=== PATIENT | female | born 1960 | race Caucasian/White ===

== ENCOUNTER 2016-10-07 15:41 | Observation (INO) | payer OTHER ==
[~2016-10-07] VITALS: Ht 158.8 cm; Wt 61.3 kg
--- NOTE | ~2016-10-07 | ECHO ---
Transthoracic Echocardiography Report (TTE) Demographics Patient Name STACY GALLARDO Date of Study 10/08/2016 Patient Number [id number] Visit Number [id number] Date of 1960 Room Number G6322 Gender Female Number Age 56 year(s) Referring Safia Aguilera Occupational Health And Safety Adviser Karina Adams, Physician RT,RVT,RDCS Physician Interpreting George Donnelly MD Recruitment Specialist Physician Supervising Ordering Safia Aguilera MD/MLP Physician Nurse Stress Picking Crew Supervisor Conclusions Contractility Score Summary Normal Left Ventricular contractility was noted. Summary Normal LV/RV size and systolic function. The estimated left ventricular ejection fraction is 65-70%. Trivial pericardial effusion. No significant valvular abnormalities. Procedure Type of Study TTE procedure:2D Echocardiogram, M-Mode, Doppler , Color Doppler. Procedure Date Date: 10/08/2016 Start: 09:50 AM Study Location: Inpatient Portable Technical Quality: Adequate visualization Indications:Syncope. Appropriate Use Criteria: 9 Patient Status: Routine HR: 66 bpm BP: 116/60 mmHg M-Mode/2D Measurements LV Diastolic Dimension: 3.87 cm LV Systolic Dimension: 2.08 cm LV Septum Diastolic: 0.79 cm LV PW Diastolic: 0.9 cm AO Root Dimension: 3.3 cm Cardiac Output: 2.43 l/min AV Cusp Separation: 1.6 cm RV Diastolic Dimension: 2.71 cm LA volume: 44 ml MV EPSS: 0.3 cm LVOT: 1.9 cm LVOT VTI: 13 cm LV Stroke volume: 36.84 ml Doppler Measurements AV Peak Velocity: 0.84 m/s MV Peak E-Wave: 0.82 m/s AV Peak Gradient: 2.84 mmHg MV Peak A-Wave: 0.64 m/s AV Mean Gradient: 1 mmHg MV E/A Ratio: 1.29 LVOT Peak Velocity: 0.67 m/s MV P1/2t: 55 msec TR Gradient:9.86 mmHg PV Peak Velocity: 0.88 m/s Estimated RAP:10 mmHg PV Peak Gradient: 3.08 mmHg Estimated RVSP: 20 mmHg Estimated PASP: 19.86 mmHg E' Septal Velocity: 0.05 m/s A' Septal Velocity: 0.12 m/s MV E/E' Ratio: 14.9 Findings Left Ventricle Normal left ventricle size and function. Diastolic assessment reveals normal relaxation. Right Ventricle Normal right ventricle structure and function. Left Atrium Normal left atrial size. Right Atrium Normal right atrial size. IVC imaging is consistent with normal RA pressures. Mitral Valve Normal mitral valve structure and function. Trace MR. Aortic Valve Normal aortic valve structure and function. Tricuspid Valve Normal tricuspid valve structure and function. Trace TR. Pulmonic Valve Normal pulmonic valve structure and function. Pericardial Effusion Trivial pericardial effusion. Miscellaneous Visualized portions of the aortic root and ascending aorta appear normal in size. Pleural Effusion No evidence of pleural effusion. Contractility Score LV regional wall motion:(0-Non visualized 1-Normal 2-Hypokinesis 3-Akinesis 4-Dyskinesis 5-Aneurysm) Signature dtt: DAGOBERTO REY dtd: 10/08/16 0950 Physician Self Edit
--- NOTE | ~2016-10-07 | ER ---
PATIENT'S NAME: [facility] AGE: 56 Y [address] ROOM: [place] [id number] LOCATION: GPCU ADMIT DATE: 10/07/2016 ER/Outpatient Report DISCHARGE DATE: FAMILY PHYSICIAN: PHYSICIAN, UNKNOWN ATTENDING PHYSICIAN: Willy BAIG Time of arrival: 1541. Time of evaluation: 1550. CHIEF COMPLAINT: Near syncope. HISTORY OF PRESENT ILLNESS: The patient is a 56-year-old female, who presents to the emergency department today with chief complaint of near-syncope. The patient has been feeling faint while driving. Apparently the patient was visiting some family earlier today. They were driving back home to [place] in the car when the patient had a total 4 episodes and the first one started where she felt like she was going to faint. She then, per her , reports that she started talking incoherently, she would still say 6 to 8 words but they made no sense at all. He reports they lasted a few seconds and then she had 3 more episodes en route to the hospital. There is no real slurring with the speech. He did not notice any weakness in any of her extremities when she was riding in a car. She did act very agitated with it. She does not have any history of similar episodes in the past. Denies any fevers or chills. No nausea or vomiting. No diarrhea or constipation. No chest pain. No shortness of breath. The patient has been undergoing quite a bit of stress in her job; otherwise, no other changes in her life. PAST MEDICAL HISTORY: Hypothyroid. PAST SURGICAL HISTORY: None reported. SOCIAL HISTORY: The patient denies any tobacco, alcohol, or illicit drug use. ALLERGIES: NO KNOWN DRUG ALLERGIES. MEDICATIONS: Synthroid. Her primary care doctor is Dr. Cesar in [place]. PATIENT'S NAME: [facility] AGE: 56 Y [address] ROOM: [address] [address] LOCATION: GPCU ADMIT DATE: 10/07/2016 ER/Outpatient Report DISCHARGE DATE: FAMILY PHYSICIAN: PHYSICIAN, UNKNOWN ATTENDING PHYSICIAN: Willy BAIG REVIEW OF SYSTEMS: All systems are reviewed by myself and are negative with the exception of those discussed in HPI and past medical history. PHYSICAL EXAMINATION: VITAL SIGNS: Weight 60.8 kg, blood pressure 120/62, pulse 75, respiratory rate 16, temperature 97.8, oxygen saturation 96% on room air. GENERAL: The patient is a 56-year-old female, who appears stated age, in no acute distress at this time. HEENT: Head: Normocephalic, atraumatic. Pupils are equal, round, and reactive to light and accommodation. Extraocular motions are intact. Nares are patent bilaterally. TMs are clear. Oropharynx is clear. NECK: Supple. There is no nuchal rigidity. CARDIOVASCULAR: Regular rate and rhythm. No murmurs, rubs, or gallops. LUNGS: Clear to auscultation bilaterally. No wheezes, rales, or rhonchi. ABDOMEN: Soft, nontender, and nondistended. No rebound, rigidity, or guarding. SKIN: Warm and dry. LABORATORY DATA AND X-RAYS: EKG is obtained, is interpreted by myself, shows sinus rhythm with a rate of 65, normal axis, normal interval. No ST elevation, ST depression, or T-wave inversions. CT scan of the brain is negative. Lactate is normal. CBC is normal. CMP is normal. LFT is normal. Cardiac enzymes are normal. TSH and free T4 is normal. ProBNP is normal. Urinalysis shows 10 blood, 2-5 wbc's, moderate bacteria. Procalcitonin less than 0.05. IMPRESSION: 1. Near syncopal episode. 2. Questionable transient ischemic attack. 3. Initial visit. EMERGENCY DEPARTMENT COURSE: The patient was brought back to the examination room. Seen and evaluated by myself. IV is established. Laboratory analysis and imaging are obtained as described above. The patient is given a liter of normal saline IV bolus. I have discussed results with the patient from the work up. She has remained stable here in the emergency department and has not had any episodes while here in the emergency department. After discussion of the results, I have discussed with the patient admission to the hospital for observation. The patient does wish to proceed with that. I have contacted Dr. Baig with the Hospitalist Service. He does agree to accept the patient for further evaluation, treatment, and management. PATIENT'S NAME: [facility] AGE: 56 Y [address] ROOM: [address] [place], [place] [address] [facility] ADMIT DATE: 10/07/2016 ER/Outpatient Report DISCHARGE DATE: FAMILY PHYSICIAN: PHYSICIAN, UNKNOWN ATTENDING PHYSICIAN: Willy BAIG DISPOSITION: The patient is admitted under the care of Hospitalist Service in stable condition. DO KATIE WALSH/ricardo /[id number] d: 10/08/16 1048 t: 10/17/16 0659, OUTPATIENT REPORT
--- NOTE | ~2016-10-07 | DS ---
PATIENT'S NAME: [facility] AGE: 56 Y [address] ROOM: [address] [address] LOCATION: GPCU ADMIT DATE: 10/07/2016 Discharge Summary DISCHARGE DATE: 10/08/2016 FAMILY PHYSICIAN: Physician, Unknown ATTENDING PHYSICIAN: Willy Baig ADMITTING DIAGNOSIS: Presyncope. DISCHARGE DIAGNOSIS: Presyncope. SECONDARY DIAGNOSIS: Hypothyroidism. PROCEDURES: Echocardiogram and CT of head. HISTORY OF PRESENTING ILLNESS: The patient is a 56-year-old female with a past medical history of hypothyroidism who presents here with 4 episodes of presyncope symptoms. The patient is originally from [place]; however, came to [place], [place] to visit family. During their return journey, the patient experienced 4 episode of presyncopal event, which she describes as dizziness, which was preceded by feeling of diaphoretic and feeling like her heart racing and also feeling of dullness. HOSPITAL COURSE: The patient was initially admitted in the emergency department and had 12-lead EKG and CT of head, which were unremarkable. EKG shows normal sinus rhythm and CT head shows no acute ischemia or hemorrhage; however, showed suspected posterior fossa arachnoid cyst measuring 2 cm. The patient was admitted in our hospital for observation. She was placed on telemonitor. Telemonitor shows normal sinus rhythm. Echocardiogram was done to evaluate structural heart disease. Echo shows normal LV to RV size and systolic function. Estimated left ventricular ejection fraction was 65% to 70% with trivial pericardial effusion. No significant valvular abnormalities were seen. The patient overnight event was unremarkable. The patient was discharged in stable condition back to home. CONDITION: Stable. DISPOSITION: Home. DISCHARGE MEDICATIONS: To continue Synthroid 88 mcg daily. DISCHARGE INSTRUCTION: Not to operate heavy machinery, including, but not limited to vehicle, until the patient is seen by primary care physician. FOLLOW UP: Follow up with her primary care physician in a week. PATIENT'S NAME: [facility] AGE: 56 Y [address] ROOM: [address] [place] [id number] LOCATION: GPCU ADMIT DATE: 10/07/2016 Discharge Summary DISCHARGE DATE: 10/08/2016 FAMILY PHYSICIAN: Physician, Unknown ATTENDING PHYSICIAN: Willy Baig Greater than 30 minutes was spent on discharge planning. MD ALLY MCKINNON/ricardo /[id number] d: 10/09/16518 t: 10/13/16 1752, DISCHARGE SUMMARY
--- NOTE | ~2016-10-07 | HP ---
PATIENT'S NAME: [facility] AGE: 56 Y [address] ROOM: [facility] [place], [place] [address] [facility] ADMIT DATE: 10/07/2016 History & Physical DISCHARGE DATE: FAMILY PHYSICIAN: PHYSICIAN, UNKNOWN ATTENDING PHYSICIAN: Willy SPENCE DATE OF SERVICE: CHIEF COMPLAINT: Presyncope. HISTORY OF PRESENT ILLNESS: The patient is a 56-year-old female with past medical history of hypothyroidism, who presents here with multiple episodes of presyncope symptoms. The patient is originally from [place]; however, came to [place], [place], to visit family; however, while returning back to [place], the patient experienced presyncopal event. According to her who was driving, he reported that initially saw her complaining that she was about to faint and feeling sick, also reports that she was complaining about her work during this event. He reports that she had close to a total of 4 episodes of her reporting dizziness and feeling like she was going to faint with associated symptom of mild confusion and "gibberish words." This episode lasted 10 to 20 seconds and the patient regained consciousness afterwards. According to the patient, she reports that she felt diaphoretic and felt her heart racing and felt like she was about to faint. She had a total of 4 episodes with 10 to 20 minutes in between each episode. These episodes happened while the was driving. was concerned, so he brought her to the closest emergency department, which was our department. Currently, she reports that she is asymptomatic. She reports that she has had 1 similar episode, but however in that episode she actually syncopized. She reports that a few years ago, she fell and broke her hand, and shortly afterwards, she experienced syncope. Of note, she reports that she has a very stressful job and is worrying about her job because it is stressful. 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 During these episodes, the patient denies chest pain, shortness of breath, change in vision, tongue biting, urinary incontinence, seizure-like activity, loss of consciousness, and head trauma. PAST MEDICAL HISTORY: Hypothyroidism. PAST SURGICAL HISTORY: No surgical history. PATIENT'S NAME: [facility] AGE: 56 Y [address] ROOM: [place] [address] [address]: [facility] ADMIT DATE: 10/07/2016 History & Physical DISCHARGE DATE: FAMILY PHYSICIAN: PHYSICIAN, UNKNOWN ATTENDING PHYSICIAN: Willy SPENCE FAMILY HISTORY: The patient reports her mother has hypothyroidism. Her dad has a history of heart disease. SOCIAL HISTORY: She denies smoking. She reports of occasional glass of wine drinking. She works as a teacher in the [employer]. MEDICATIONS: Synthroid 88 mcg daily. REVIEW OF SYSTEMS: All systems have been reviewed and are negative except for what I mentioned in the HPI. PHYSICAL EXAMINATION: VITAL SIGNS: Temperature 97.8, blood pressure 120/62, heart rate of 75, respiratory rate 16, and O2 saturation of 96. GENERAL APPEARANCE: The patient is alert and awake, in no acute distress. HEAD: Normocephalic, atraumatic. EYES: Extraocular muscles intact. Sclerae nonicteric. NOSE: No nasal discharge. EARS: No ear discharge. ORAL CAVITY: Moist oral cavity. CHEST: Clear to auscultation bilaterally. HEART: Regular rate and rhythm. No murmurs, rubs, or gallops. ABDOMEN: Soft, nontender, nondistended. Bowel sounds are present. SKIN: Warm to touch. MUSCULOSKELETAL: Range of motion intact. EXTREMITIES: No edema noted. HEMATOLOGY ONCOLOGY CONSULTANT: The patient is alert and oriented x3. Motor and sensory grossly intact. LABORATORY DATA: Hemoglobin 13.4, white blood cell count of 4.9, platelets of 192. Sodium was 141, potassium of 4, CO2 of 28, creatinine of 1, BUN of 21, blood glucose of 91, TSH 1.3. Troponin x1 negative. ProBNP of 81. CT head, preliminary report per Emergency Department, no acute abnormality. EKG: Normal sinus rhythm. No ischemic ST and T-wave changes noted. ASSESSMENT AND PLAN: 1. Presyncope: The patient is a 56-year-old female with past medical history of hypothyroidism, who presented here with presyncope. Etiology most likely vasovagal as the patient is experiencing stress at work, most likely initiated by emotion. Initial workup including troponin, CT head, PATIENT'S NAME: [facility] AGE: 56 Y [address] ROOM: [place] [address] [facility] ADMIT DATE: 10/07/2016 History & Physical DISCHARGE DATE: FAMILY PHYSICIAN: PHYSICIAN, UNKNOWN ATTENDING PHYSICIAN: Willy SPENCE and EKG unremarkable. We will acquire echocardiogram to further investigate if there is any structural cardiac disease. Keep the patient on telemonitor. 2. Hypothyroidism. TSH within normal limits. We will continue the patient's home medication of 88 mcg of Synthroid. Greater than 40 minutes was spent on the patient's care. 50% of the time was spent on direct patient care. The patient discussed with Dr. Stewart, emergency physician. Assessment and plan was discussed with the patient and . All questions were answered with satisfaction. Code status on admission, full code. BEBE CRUZ MD AD/ricardo /[id number] D: [id number] T: [id number] HISTORY & PHYSICAL
[2016-10-07 16:16] LABS: BASOPHIL # 0.1 K/uL (0.0-0.2); NRBC % 0 /100WBC (0-0.00)
[2016-10-07 16:38] LABS: BILIRUBIN URINE NEGATIVE (NEGATIVE); BLOOD URINE 10 /UL (NEGATIVE); GLUCOSE URINE NEGATIVE (NEGATIVE); KETONE URINE NEGATIVE (NEGATIVE); LEUKOCYTES URINE NEGATIVE /UL (NEGATIVE); NITRITE URINE NEGATIVE (NEGATIVE); PH URINE 6.5 (4.0-8.0); PROTEIN URINE NEGATIVE (NEGATIVE); UROBILINOGEN URINE NORMAL (NORMAL)
[2016-10-07 16:39] LABS: COLOR URINE YELLOW (YELLOW); TURBIDITY URINE CLEAR (CLEAR)
[2016-10-07 16:48] LABS: HEMATOCRIT 40.3 % (33.0-46.0); HEMOGLOBIN 13.4 g/dL (10.0-15.0); MCV 92.4 fl (83.0-98.0); RBC 4.36 M/uL (3.50-5.50); WBC 4.9 K/uL (4.0-11.0)
[2016-10-07 16:49] LABS: BASOPHIL % 1.2 %; EOSINOPHIL # 0.2 K/uL (0.0-0.5); EOSINOPHIL % 3.7 %; LYMPHOCYTE # 1.1 K/uL (0.8-4.0); LYMPHOCYTE % 22.5 %; MCH 30.7 pg (27.0-34.0); MCHC 33.3 gm/dL (32.0-36.5); MONOCYTE # 0.7 K/uL (0.0-1.0); MONOCYTE % 13.3 %; MPV 10.9 fl (9.4-12.4); NEUTROPHIL # (ANC) 2.9 K/uL (1.8-7.8); NEUTROPHIL % 59.3 %; PLATELET COUNT 192 K/uL (150-450); RDW-CV 11.4 % (11.9-14.6)
[2016-10-07 16:53] LABS: BACTERIA URINE MODERATE (NEGATIVE); EPITHELIAL URINE 0-2 #/HPF (NEGATIVE); RBC URINE 0-2 #/HPF (NEGATIVE)
[2016-10-07 16:54] LABS: AMORPHOUS URINE 2+ (NEGATIVE); MUCUS URINE 1+ (NEGATIVE)
[2016-10-07 16:56] LABS: ALBUMIN 3.6 gm/dL (3.5-5.0); ALK PHOS 108 IU/L (33-138); ALT 23 IU/L (12-78); AST 25 IU/L (10-40); BLOOD UREA NITROGEN 21 mg/dL (6-24); CALCIUM 8.2 mg/dL (8.5-10.5); CHLORIDE 106 mMol/L (96-110); CO2 28 mMol/L (22-32); CPK 144 IU/L (21-215); ESTIMATED GFR (MDRD EQUATION) 57; SODIUM 141 mMol/L (135-145); TOTAL BILIRUBIN 0.8 mg/dL (0.0-1.5); TOTAL PROTEIN 7.1 g/dL (6.0-8.4)
[2016-10-07 19:14] LABS: INR - (THERAPEUTIC) 0.95 (0.92-1.07)
[2016-10-07] MEDS ORDERED: LEVOTHROID (SY88 MCG PO (20:34)
[2016-10-07] MEDS ORDERED: JUICE PLUS VITAMINS PO (20:34)
[2016-10-07] MEDS ORDERED: TYLENOL325 MG PO (20:35)
--- NOTE | 2016-10-07 23:35 | NUR ---
Patient arrives to PCU at 1930 from ER. Had been driving with back to [place] when she had 5 episodes of syncope with odd comments made, diaphoresis, dizziness, nausea per patient. Patient does not remeber making odd comments. Episodes happened over the coarse of approx 45minutes. No pain/dizziness/nausea on admission. No numbness/tingling. VSS on RA. IV to R)wrist. A/O. using call light to voice needs.
--- NOTE | 2016-10-08 04:09 | NUR ---
Significant Event: A/O, VSS, RA, afebrile, denies pain/SOB/N/T, no dizziness upon ambulating, alarms on for fall risk Follow up: echo and EKG this am
--- NOTE | 2016-10-08 15:07 | NUR ---
Significant Event: PT HAD ECHO TODAY. UP TO BATHROOM. NEUROS INTACT NO PROBLEMS. NO C/O PAIN. Follow up: DC TODAY
--- NOTE | 2016-10-08 15:07 | NUR ---
Introduced self and role of care management to patient and . They live in [place]. She states that she is able to do all her own ADL's. Her stated he is able to assist as needed. She plans on returning home on discharge. She denies any needs at this time. Will continue to follow.
--- NOTE | 2016-10-08 17:24 | NUR ---
d-dr dior pt dc i-nurse discussed pt dc meds same, appt set up but pt may change with home dr mallory mccabe, iv dcd intact, pt feels good and has no c/o r-no questions, pt and pleasant p-ta took pt to car to go back to [place]
== END 2016-10-08 16:50 | disposition disaster alternative care site (69) ==
LOC: GMED 15:41 → GPCU 19:08
PROVIDERS: Emergency Medicine; ADMIT Internal Medicine
DX: R55 Syncope and collapse (principal); E03.9 Hypothyroidism, unspecified; Z79.899 Other long term (current) drug therapy
CPT/HCPCS: G0378; J1650; J7030